=== PATIENT | male | born 1975 | race Hispanic/Latino ===

== ENCOUNTER 2019-02-05 06:00 | Day surgery (SDC) | payer OTHER ==
[2019-02-04 14:35] VITALS: BP 180/95
[2019-02-04 14:35] LABS: HEMATOCRIT 31.7 % (42-54); MEAN CORPUSCULAR HEMOGLOBIN 27.5 pg (27.0-33.0); MEAN CORPUSCULAR HGB CONC 31.5 g/dL (32.0-36.0); MEAN CORPUSCULAR VOLUME 87.1 fL (79-99); PLATELET COUNT (AUTO) 252 K/uL (130-400); RED BLOOD CELL COUNT(AUTO) 3.64 MIL/uL (4.50-6.20); RED CELL DISTRIBUTION WIDTH 13.4 % (11.0-15.5); WHITE BLOOD COUNT (AUTO) 7.5 K/uL (4.8-10.8)
[2019-02-04 14:44] LABS: CREATININE 1.3 mg/dL (0.5-1.5); POTASSIUM 4.5 mmol/L (3.5-5.1)
[2019-02-04 14:46] LABS: INR 1.11 (0.85-1.15); PROTHROMBIN TIME 11.6 SEC (9.6-11.6)
[2019-02-04 14:54] LABS: APPEARANCE,URINE Clear (CLEAR); BILIRUBIN,URINE Negative (NEGATIVE); COLOR,URINE Yellow (YELLOW); GLUCOSE, URINE (UA) Negative (NEGATIVE); KETONES,URINE Negative (NEGATIVE); LEUKOCYTE ESTERASE ,URINE Negative (NEGATIVE); NITRATE,URINE Negative (NEGATIVE); OCCULT BLOOD,URINE Moderate (NEGATIVE); PROTEIN,URINE 300 mg/dL (NEGATIVE); UROBILINOGEN,URINE 0.2 mg/dL (0.2-1.0)
[2019-02-04 15:08] LABS: BACTERIA,URINE Rare /HPF (None Seen); WBC,URINE 0-1 /HPF (0-1)
[2019-02-04 15:09] LABS: SQUAMOUS EPITHELIAL CELL,UR Rare /HPF (0-2)
[2019-02-04 16:27] LABS: BAND NEUTROPHILS % (MANUAL) 3 % (0-2); EOSINOPHILS % (MANUAL) 1 % (1-6); LYMPHOCYTES % (MANUAL) 25 % (22-44); MAN.DIFF COMMENT-IMPRESSION MANUAL DIFFERENTIAL; MONOCYTES % (MANUAL) 5 % (2-9); REACTIVE LYMPHOCYTES 14 % (0-0); SEGMENTED NEUTROPHILS % 52 % (40-70)
--- NOTE | 2019-02-04 18:20 | NUR ---
Dr. Pelaez called and notified of pt's abnormal labs, 3.64 RBC, 10.0 HGB, 31.7 HCT, and high amount of protein and blood in urine. No further orders given.
[2019-02-05] VITALS (11 sets, daily range): BP systolic 107–189; BP diastolic 65–101
[~2019-02-05] VITALS: Ht 175.3 cm; Wt 100.4 kg
[~2019-02-05 06:00] MED LIST: ASPI-1026 PO; ATOR-2 PO; B12 PO; CLOP75TA14 PO; FLUC200T8 PO; LISI-613 PO; METF-446 PO; METO100T14 PO; SODIUM CHLORIDE 0.9% 500ML 500 ML IV SCH; iron PO
[2019-02-05] MEDS ORDERED: SODIUM CHLORIDE 0.9% 1000ML 1,000 ML IV ONE (06:14)
[2019-02-05] MEDS ORDERED: HEPARIN SODIUM 1000UNIT/ML 10ML VIAL ONE (07:23)
[2019-02-05] MEDS ORDERED: IOHEXOL-350 50ML VIAL IV ONE (07:24)
[2019-02-05] MEDS ORDERED: NITROGLYCERIN 5 MG/ML 10 ML VIAL IV ONE (07:24)
[2019-02-05] MEDS ORDERED: NICARDIPINE HCL 25 MG/10 ML ML IV ONE (07:24)
[2019-02-05] MEDS ORDERED: IOHEXOL 350 MG/ML 100ML INFUS..BTL IV ONE (07:24)
[2019-02-05] MEDS ORDERED: FENTANYL CITRATE PF 50 MCG/1 ML 2ML VIAL ONE (07:25)
[2019-02-05] MEDS ORDERED: LIDOCAINE HCL 2% 20ML ONE (07:25)
[2019-02-05] MEDS ORDERED: MIDAZOLAM HCL 1 MG/ML 2ML VIAL ONE (07:25)
[2019-02-05] MEDS ORDERED: HYDRALAZINE HCL 20 MG/ML VIAL ONE (08:43)
--- NOTE | 2019-02-05 10:03 | NUR ---
DIET PT TOLERATING DIET WELL. ASSISTING PT.
--- NOTE | 2019-02-05 12:00 | NUR ---
NOTE CALLED DR. BEATTY DUE TO HE HAS NOT SPOKEN TO PT AND . PER DR. BEATTY DO NOT DISCHARGE PT UNTIL HE SEES THEM, HE IS ON HIS WAY.
--- NOTE | 2019-02-05 13:15 | NUR ---
DISCHARGE PT DISCHARGED VIA WHEELCHAIR WITH . PT STABLE. CATH SITE TO RIGHT GROIN REMAINS SOFT, DRESSING DRY AND INTACT, NO OOZING NO HEMATOMA NOTED. DISCHARGE INSTRUCTIONS GIVEN TO PT AND , VERBALIZED UNDERSTANDING. DR. BEATTY CAME IN TO TALK TO PT AND PRIOR TO DISCHARGE, ALSO GAVE THEM INSTRUCTIONS REGARDING CATH SITE CARE, NEW RX AND ACTIVITY. VERBALIZED UNDERSTANDING. Addendum: 02/05/19 at 1356 by APOLLO STUBBS RN RN VOIDED PRIOR TO DISCHARGE.
== END 2019-02-05 13:15 | disposition home or self-care (01) ==
LOC: DAH 06:00
PROVIDERS: ATTEND Internal Medicine Cardiovascular Disease
DX: I25.10 Atherosclerotic heart disease of native coronary artery without angina pectoris (principal); I25.2 Old myocardial infarction; Z79.82 Long term (current) use of aspirin; Z79.899 Other long term (current) drug therapy; Z98.61 Coronary angioplasty status; Z87.891 Personal history of nicotine dependence
CPT/HCPCS: 36415; 71045; 80048; 81001; 82948 ×2; 85025; 85610; 85730; 93005; 93458; A4215; A4216; A4221; A4222; A4223 ×2; A4606; A4663; C1760; C1894 ×2; J0360; J1644; J2250; J3010; J3490 ×3; J7030; Q9965; Q9967; 99156; 99157

== ENCOUNTER → 2020-07-28 | Outpatient (CLI) | payer OTHER ==
[~2020-07-28] MED LIST changes: -LISI-613 PO; +LISI20TA24 PO; -SODIUM CHLORIDE 0.9% 500ML 500 ML IV SCH
== END | disposition home or self-care (01) ==
LOC: SHCH 08:31
PROVIDERS: ATTEND Internal Medicine Cardiovascular Disease
DX: R09.89 Other specified symptoms and signs involving the circulatory and respiratory systems (principal); R01.1 Cardiac murmur, unspecified
CPT/HCPCS: 93306; 93356; 93880

== ENCOUNTER 2021-10-06 06:01 | Day surgery (SDC) | payer OTHER ==
[2021-10-05 12:26] LABS: BASOPHILS % (AUTO) 0.6 % (0.0-5.0); EOSINOPHILS % (AUTO) 2.7 % (0.0-8.0); LYMPHOCYTES % (AUTO) 29.5 % (21.0-51.0); MEAN CORPUSCULAR HGB CONC 33.1 g/dL (32.0-36.0); MEAN CORPUSCULAR VOLUME 84.8 fL (79-99); MONOCYTES % (AUTO) 8.6 % (3.0-13.0); NEUTROPHILS % (AUTO) 58.3 % (40.0-77.0); PLATELET COUNT (AUTO) 215 K/uL (130-400); WHITE BLOOD COUNT (AUTO) 7.1 K/uL (4.8-10.8)
[2021-10-05 12:39] LABS: INR 0.99 (0.85-1.15); PROTHROMBIN TIME 10.8 SEC (9.6-11.6)
[2021-10-05 12:40] LABS: PARTIAL THROMBOPLASTIN TIME 26.6 SEC (26.3-35.5)
[2021-10-05 12:44] LABS: CREATININE 1.4 mg/dL (0.5-1.5)
[2021-10-05 13:08] LABS: B-TYPE NATRIURETIC PEPTIDE 15 pg/mL (0-100)
[2021-10-05 15:19] VITALS: BP 150/85
[2021-10-06] VITALS (11 sets, daily range): BP systolic 114–156; BP diastolic 70–86
[~2021-10-06] VITALS: Ht 175.3 cm; Wt 113.7 kg
[~2021-10-06 06:01] MED LIST changes: +AEC81 PO; +AMLO-257 PO; -ASPI-1026 PO; -B12 PO; -FLUC200T8 PO; -LISI20TA24 PO; +LISI5TAB21 PO; +METF-444 PO; -METF-446 PO; +NITR0.4T50 SL; +SEMA1PEN3 SQ; -iron PO
[2021-10-06] MEDS ORDERED: 0.9%NACL 1000ML 1,000 ML IV ONE (06:19)
[2021-10-06 06:29] LABS: APPEARANCE,URINE CLEAR (CLEAR); BILIRUBIN,URINE NEGATIVE (NEGATIVE); COLOR,URINE YELLOW (YELLOW); GLUCOSE, URINE (UA) NEGATIVE (NEGATIVE); KETONES,URINE NEGATIVE (NEGATIVE); LEUKOCYTE ESTERASE ,URINE NEGATIVE (NEGATIVE); NITRATE,URINE NEGATIVE (NEGATIVE); OCCULT BLOOD,URINE SMALL (NEGATIVE); PROTEIN,URINE 100 mg/dL (NEGATIVE); UROBILINOGEN,URINE 0.2 mg/dL (0.2-1.0)
[2021-10-06 06:35] LABS: BACTERIA,URINE Rare /HPF (None Seen); RBC,URINE 0-1 /HPF (0-1); SQUAMOUS EPITHELIAL CELL,UR Rare /HPF (0-2); WBC,URINE None Seen /HPF (0-1)
[2021-10-06] MEDS ORDERED: MIDAZOLAM HCL 1 MG/ML 2ML VIAL ONE (07:12)
[2021-10-06] MEDS ORDERED: IOHEXOL 350 MG/ML 100ML INFUS..BTL IV ONE (07:12)
[2021-10-06] MEDS ORDERED: LIDOCAINE HCL 1% 20 ML VIAL ONE (07:12)
[2021-10-06] MEDS ORDERED: MEPERIDINE-PF 25 MG/ML SYG ONE (07:13)
[2021-10-06] MEDS ORDERED: SODIUM BICARB 50MEQ 50ML VIAL 50 ML ONE (07:16)
[2021-10-06] MEDS ORDERED: NITROGLYCERIN 50MG VIAL ONE (07:26)
[2021-10-06] MEDS ORDERED: HYDRALAZINE 20MG/ML VIAL ONE (07:59)
[2021-10-06] MEDS ORDERED: 0.9%NACL 1000ML 1,000 ML IV SCH (08:30)
== END 2021-10-06 13:40 | disposition home or self-care (01) ==
LOC: DAH 06:01
PROVIDERS: ATTEND Internal Medicine Cardiovascular Disease
DX: I25.110 Atherosclerotic heart disease of native coronary artery with unstable angina pectoris (principal); I50.42 Chronic combined systolic (congestive) and diastolic (congestive) heart failure; I25.2 Old myocardial infarction; Z95.5 Presence of coronary angioplasty implant and graft; Z79.82 Long term (current) use of aspirin; Z79.01 Long term (current) use of anticoagulants; Z79.84 Long term (current) use of oral hypoglycemic drugs; Z79.899 Other long term (current) drug therapy; Z98.890 Other specified postprocedural states
CPT/HCPCS: 80048; 83880; 85025; 85610; 85730; 71045; 93005 ×2; 93458; 82948 ×2; 81001; 36415; A6260; C1769; C1894; C1760; J7030; J3490 ×2; J0360; J2250; J2175; J1644; Q9967; A4215; A4222; A4221; A4663; A4216; A4606; A4223 ×3; 96360; 96361; 99156; 99157